=== PATIENT | female | born 1990 | race Caucasian/White ===

== ENCOUNTER → 2021-05-16 16:13 | Outpatient (BNVA) | payer OTHER, SELFPAY | PROVIDERS: PCP Nurse Practitioner Family; Referring Provider Nurse Practitioner Family; Visit Provider Surgery | DX: L02.91 Cutaneous abscess, unspecified (principal); Z72.0 Tobacco use; Z80.3 Family history of malignant neoplasm of breast; Z80.1 Family history of malignant neoplasm of trachea, bronchus and lung; Z80.8 Family history of malignant neoplasm of other organs or systems; Z79.84 Long term (current) use of oral hypoglycemic drugs; Z79.899 Other long term (current) drug therapy | CPT/HCPCS: 10061 ==

== ENCOUNTER 2021-08-27 12:22 | Emergency (ER) | payer OTHER, SELFPAY ==
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
[2021-08-27 13:00] VITALS: BP 152/72; PULSE 89; RESP 18; TEMP 37; O2SAT 99; BMI 27.3
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
[2021-08-27 14:22] LABS: UPreg QC Valid YES
[2021-08-27 14:23] LABS: Urine Pregnancy NEGATIVE (NEGATIVE)
== END 2021-08-27 15:36 | disposition home or self-care (01) ==
PROVIDERS: Emergency Provider Emergency Medicine; PCP Nurse Practitioner Family
DX: S06.0X0A Concussion without loss of consciousness, initial encounter (principal); S13.4XXA Sprain of ligaments of cervical spine, initial encounter; V43.51XA Car driver injured in collision with sport utility vehicle in traffic accident, initial encounter; F17.200 Nicotine dependence, unspecified, uncomplicated; Y93.89 Activity, other specified; Y92.414 Local residential or business street as the place of occurrence of the external cause; Y99.9 Unspecified external cause status
CPT/HCPCS: 70450; 72125; 81025; 99284

== ENCOUNTER 2023-08-28 07:54 | Outpatient (AMB) | payer OTHER, SELFPAY ==
[2023-08-28 08:11] VITALS: BP 120/68; PULSE 78; O2SAT 100; BMI 29.7
--- NOTE | 2023-08-28 08:11 | MHC.PC.OV ---
Vital Signs 08/28/23 08:11 Height 5 ft 1 in Weight 157 lb BMI 29.7 BP 120/68 Blood Pressure Location Rt brachial Position Sitting Pulse 78 Pulse Source Pulse Oximeter Pulse Oximetry (%) 100 Oxygen Delivery Method Room Air Intake Visit Reasons: Bilateral hip pain/OK Per Dr. Boyd Intake Note: Pt is here for a referral for Bilateral hip pain pt has had the pain since last year when she gave she is in PT and is needing more referrals Allergies No Known Allergies Allergy (Verified 08/28/23 08:19) Medication List - Last Reconciled 08/28/23 by GIAN Palmer No Known Home Meds Tobacco use date assessed: 08/28/23 Dental Screening Dental Screen Date: 08/28/23 Did you have a dental visit in the last 12 months?: Yes Did you have a dental problem in the last 6 months where you did not have access to dental care?: No Was dental information given to patient?: Patient has dentist HPI HPI Comments History of Present Illness Details Patient is a 32-year-old female here for a sick visit. Patient states that since giving 1 year prior she developed some pelvic floor in bilateral hip pain. She currently has services through the OBGYN at [facility]. She is currently seeing a pelvic floor physical therapist and is about to complete her session, has been suggested to have physical therapy for core and hips. Patient had pelvic CT scan with contrast at [facility] which demonstrated diastasis recti. Patient does not use any medication at this time. States that the pain is not constant, movement dependent. Denies tingling numbness. [facility] Medical History (Updated 08/28/23 @ 08:37 by GIAN Palmer) PCOS (polycystic ovarian syndrome) Skin abscess Family History Other Breast cancer Lung cancer Thyroid cancer Social History Housing: House Patient Tobacco Use Status: Current everyday Tobacco user Cigarettes Per Day: 4 e-Cigarette/Vaping Use: Never Used Second Hand Smoke Exposure: No service: No Current occupational status: employed Current occupation: [employer] Current occupational exposures/hazards: No Cognitive needs: No Hearing needs: No Vision needs: No Questionnaire Thrive Questionnaire Date Thrive assessed: 04/04/22 MATT-7 AMB Questionnaire MATT-7 Date MATT - 7 assessed: 04/04/22 Source: Developed by Drs. Hugo Roberts, Eloise Anthony, León Olson and colleagues, with an educational aidee from [employer]. Review of Systems Const Details: Constitutional : No Weight loss, No Fever, No Chills, No Fatigue, No Malaise Cardiovascular : No Chest Pain, No SOB, No Dyspnea on Exertion, No Orthopnea, No Edema, No Palpitations Respiratory : No Cough, No Sputum, No Wheezing Musculoskeletal : Admits bilateral hip pain with trunk rotation and abduction. Skin : No Skin Lesions, No rash Neuro : No Weakness, No Numbness, No Dizziness, No Headache Psych : No Anxiety/Panic, No Depression All other systems reviewed and are negative Physical exam (Primary Care) Vital Signs: Last Vital Signs Pulse 78 08/28/23 08:11 BP 120/68 08/28/23 08:11 Pulse Ox 100 08/28/23 08:11 Oxygen Delivery Method Room Air 08/28/23 08:11 BMI result Body Mass Index 29.7 Tobacco/Smoking Status: Tobacco use Status Tobacco use date assessed 08/28/23 08/28/23 08:15 Patient Tobacco Use Status Current everyday Tobacco 08/28/23 08:15 e-Cigarette/Vaping Use Never Used 08/28/23 08:15 Thrive Assessment: Date of Thrive Assessment Date Thrive assessed 04/04/22 08/28/23 08:15 Const Other: Appearance: Alert.? Oriented X3.? No acute distress.? Head: Normocephalic, atraumatic. Neck: Normal inspection.? Neck supple.? CVS: Normal heart rate and rhythm.? Pulses normal.? Respiratory: No respiratory distress.? Breath sounds normal.? Skin: Skin warm and dry.? Normal skin color.? Normal skin turgor.? Extremities: +tenderness with abduction and adduction. No obvious deformity. Neuro: Oriented X 3.? No motor deficit.? No sensory deficit. CN 2-12 intact Results Reviewed Results Reviewed: Patient CT scan from [facility] will be sent to us and uploaded. Assessment and Plan Assessment & Plan (1) Bilateral hip pain: Comment: Pelvic CT scan demonstrated diastasis recti. Patient is currently finishing course of pelvic floor therapy. Will refer to physical therapy for bilateral hip pain. Code(s): M25.551 - Pain in right hip; M25.552 - Pain in left hip Plan: Patient will also get fasting labs Plan Patient has follow-up with PCP in 2 months. Coding Level of Care Code Est Pt Level 3 (11624) Diagnoses Bilateral hip pain M25.551; M25.552 Time Spent (min) 25
== END 2023-08-28 08:28 | disposition home or self-care (01) ==
PROVIDERS: PCP Nurse Practitioner Family; Visit Provider Nurse Practitioner Primary Care
DX: M25.551 Pain in right hip (principal); M25.552 Pain in left hip
CPT/HCPCS: 99213

== ENCOUNTER 2023-08-28 08:30 | Outpatient (REF) | payer OTHER, SELFPAY ==
[2023-08-28 10:36] LABS: MANUAL DIFF FLAG NO
[2023-08-28 10:53] LABS: Appearance Urine Clear; Basophils Absolute Auto 0.1 X10*3/uL (0.0-0.2); Basophils Percent Auto 0.8 % (0-2); Color Urine Yellow; Eosinophils Absolute Auto 0.3 X10*3/uL (0.0-0.4); Glucose Urine UA Negative (Negative); Hematocrit 42.8 % (37.0-47.0); Hemoglobin 14.1 g/dl (12.0-16.0); Imm Gran Abs Auto 0.02 X10*3/uL (0.00-0.03); Imm Gran Pct Auto 0.3 % (0.0-0.4); Leukocyte Esterase Urine Negative (Negative); Lymphocytes Absolute Auto 2.3 X10*3/uL (1.2-4.9); Lymphocytes Percent Auto 30.9 % (20-40); Mean Corpuscular HGB Conc 32.9 g/dl (31.0-35.0); Mean Corpuscular Hemoglobin 29.4 pg (27.0-33.0); Mean Corpuscular Volume 89.4 fL (80.0-98.0); Mean Platelet Volume 10.5 fL (9.4-12.3); Monocytes Absolute Auto 0.6 X10*3/uL (0.1-1.2); Monocytes Percent Auto 7.8 % (2-11); Neutrophils Absolute Auto 4.1 x10*3/uL (2.0-8.3); Neutrophils Percent Auto 56.2 % (45-73); Nitrite Urine Negative (Negative); Platelet Count 318 X10*3/uL (160-400); Red Blood Count 4.79 X10*6/uL (4.20-5.50); Red Cell Distribution Width 14.1 % (11.0-16.0); Specific Gravity - Urine <= 1.005 (1.005-1.025); Urine Blood Negative (Negative); Urine Ketones Negative (Negative); Urine Protein Negative (Neg-Trace); White Blood Count 7.3 X10*3/uL (4.8-10.8)
[2023-08-28 11:08] LABS: Alanine Aminotransferase 12 U/L (0-31); Albumin Level 4.4 g/dL (3.5-5.0); Alkaline Phosphatase 65 U/L (39-117); Anion Gap 11 (12-20); Aspartate Amino Transferase 13 U/L (5-31); Bilirubin Total 0.4 mg/dL (0.0-1.0); Blood Urea Nitrogen 13 mg/dL (9-16); Calcium 9.2 mg/dL (8.4-10.2); Carbon Dioxide 22 mmol/L (22-29); Chloride 109 mmol/L (96-108); Estimated Glomerular Filt Rate > 60; Glucose Random 105 mg/dL (60-115); Sodium 138 mmol/L (135-145); Total Protein 7.4 g/dL (6.5-8.0)
[2023-08-28 11:12] LABS: TSH reflex Free T4 1.15 uIU/mL (0.32-4.0)
[2023-08-28 11:16] LABS: Vitamin B12 443 pg/mL (200-900)
[2023-09-01 16:08] LABS: Vitamin D 25-OH, D2 <4 ng/mL; Vitamin D 25-OH, D3 15 ng/mL; Vitamin D 25-OH, Total 15 ng/mL (30-100)
[2023-09-01 17:08] LABS: Vitamin B6 4.3 ng/mL (2.1-21.7)
== END 2023-08-28 08:31 | disposition home or self-care (01) ==
LOC: HO.HMGCLDS 08:30
PROVIDERS: PCP Nurse Practitioner Family; Visit Provider Nurse Practitioner Primary Care
DX: Z13.0 Encounter for screening for diseases of the blood and blood-forming organs and certain disorders involving the immune mechanism (principal); Z13.21 Encounter for screening for nutritional disorder; Z13.89 Encounter for screening for other disorder; Z91.89 Other specified personal risk factors, not elsewhere classified; Z13.29 Encounter for screening for other suspected endocrine disorder
CPT/HCPCS: 36415; 80053; 81003; 82306; 82607; 84207; 84443; 85025

== ENCOUNTER 2023-11-03 10:56 | Outpatient (AMB) | payer OTHER, SELFPAY ==
--- NOTE | 2023-11-03 10:57 | A.OFFPC_ITS ---
Vital Signs 11/03/23 11:00 Height 5 ft 1 in Weight 156 lb BMI 29.5 BP 120/76 Blood Pressure Location Rt brachial Position Sitting Pulse 70 Pulse Source Pulse Oximeter Pulse Oximetry (%) 98 Oxygen Delivery Method Room Air Intake Visit Reasons: OVERDUE PE - see comments Intake Note: Patient here for physical exam. pt would like to talk about right ear tunnel feeling and possible hernia over belly button which has been tender to the touch. last pap: 2020, recently had a baby Allergies No Known Allergies Allergy (Verified 11/03/23 11:01) Medication List - Last Reconciled 11/03/23 by TEREZA Terry cholecalciferol (vitamin D3) 50 mcg PO DAILY 90 days Tobacco use date assessed: 08/28/23 Dental Screening Dental Screen Date: 08/28/23 HPI OVERDUE PE - see comments HPI Details Pt is here for a PE. Will order labs. 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 [facility] Medical History PCOS (polycystic ovarian syndrome) Skin abscess Family History Other Breast cancer Lung cancer Thyroid cancer Social History Housing: House Patient Tobacco Use Status: Current everyday Tobacco user Cigarettes Per Day: 4 e-Cigarette/Vaping Use: Never Used Second Hand Smoke Exposure: No service: No Current occupational status: employed Current occupation: [email or web address] Current occupational exposures/hazards: No Cognitive needs: No Hearing needs: No Vision needs: No Questionnaire PHQ-9 Over the last 2 weeks, how often have you been bothered by any of the following problems? 1. Little interest or pleasure in doing things: not at all 2. Feeling down, depressed, or hopeless: not at all 3. Trouble falling or staying asleep, or sleeping too much: not at all 4. Feeling tired or having little energy: not at all 5. Poor appetite or overeating: not at all 6. Feeling bad about yourself - or that you are a failure or have let yourself or your family down: not at all 7. Trouble concentrating on things, such as reading the newspaper or watching television: not at all 8. Moving or speaking so slowly that other people could have noticed. Or the opposite - being so fidgety or restless that you have been moving around a lot more than usual: not at all 9. Thoughts that you would be better off or of hurting yourself in some way: not at all Total score: 0 Depression Screening Interpretation: Negative Depression Screening Done: Yes 82627 - PHQ-9 Billing: Yes Source: Developed by Drs. Hugo Roberts, Eloise Anthony, León Olson and colleagues, with an educational aidee from [employer]. Thrive Questionnaire Date Thrive assessed: 11/03/23 I am a: Patient What is your living situation today?: I have a steady place to live Within the past 12 months, did the food you bought not last and you didn't have the money to get more?: Never true Within the past 12 months, did you worry whether your food would run out before you got money to buy more?: Never true Do you have trouble paying for medicines?: No Do you have trouble getting transportation to medical appointments?: No Do you have trouble paying your heating and electricity bill?: No Do you have trouble taking care of your child, family member or friend?: No Do you have trouble with day-to-day activities such as bathing, preparing meals, shopping, managing finances, etc.?: No Are you currently unemployed and looking for a job?: No Are you interested in more education?: No Currently or been in a relationship where the following occur: I choose not to answer this question THRIVE Score: 0 MATT-7 AMB Questionnaire MATT-7 Date MATT - 7 assessed: 11/03/23 Feeling nervous, anxious, or on edge: 0 = Not at all Not being able to stop or control worryin = Not at all Worrying too much about different things: 0 = Not at all Trouble relaxin = Not at all Being so restless that it is hard to sit still: 0 = Not at all Becoming easily annoyed or irritable: 0 = Not at all Feeling afraid as if something awful might happen: 0 = Not at all Total AMTT-7 score (0-4 normal; 5-9 mild; 10-14 moderate; 15-21 severe): 0 Source: Developed by Drs. Hugo Roberts, Eloise Anthony, León Olson and colleagues, with an educational aidee from [employer]. MATT-7 Assessment Billing MATT-7 Assessment Tool: MATT-7 Assessment 62843 Review of Systems Const Denies chills and Denies fever(s) Eyes Denies blurry vision ENT Denies vertigo, Denies dizziness and Denies sore throat Card Denies chest pain at rest, Denies chest pain with activity, Denies diaphoresis, Denies dyspnea and Denies dyspnea on exertion Resp Denies cough, Denies dyspnea, Denies dyspnea on exertion and Denies wheezing GI Denies abdominal pain, Denies melena, Denies hematochezia, Denies constipation, Denies diarrhea and Denies loose stools Denies hematuria Musc Denies numbness and Denies tingling Skin/Breast Denies lesions Neuro Denies vertigo, Denies dizziness, Denies numbness and Denies tingling Psych Denies anxiety, Denies depression, Denies homicidal ideation, Denies suicidal ideation and Denies other (substance abuse) Aller/Immun Denies wheezing Physical exam (Primary Care) Vital Signs: Last Vital Signs Pulse 70 11/03/23 11:00 BP 120/76 11/03/23 11:00 Pulse Ox 98 11/03/23 11:00 Oxygen Delivery Method Room Air 11/03/23 11:00 BMI result Body Mass Index 29.5 Tobacco/Smoking Status: Tobacco use Status Tobacco use date assessed 08/28/23 11/03/23 11:00 Patient Tobacco Use Status Current everyday Tobacco 11/03/23 11:00 e-Cigarette/Vaping Use Never Used 11/03/23 11:00 Depression Screening Interpretation: Negative Thrive Assessment: Date of Thrive Assessment Date Thrive assessed 04/04/22 11/03/23 11:00 Currently or been in a relationship where the following occur: I choose not to answer this question Const General: cooperative Nutritional Appearance: well nourished Orientation/consciousness: patient oriented x3 HENMT Head: Yes normal to inspection, Yes normocephalic and Yes atraumatic Ears: TM's normal bilaterally Eyes General: appearance normal, both eyes and all related structures Alignment and Position: alignment normal and position normal Neck Neck: Yes normal visual inspection and Yes no lymphadenopathy Thyroid: Thyroid normal Resp Effort & Inspection: normal respiratory effort Auscultation: clear to auscultation bilaterally Cardio Rate: regular rate Rhythm: regular rhythm Heart sounds: S1 normal heart sound present, S2 normal heart sound present and no murmurs GI Palpation (GI): Soft to palpation and nontender Auscultation: normal bowel sounds Skin Rashes: no rashes Neuro General: patient oriented x3, moves all extremities, no focal motor deficits and deep tendon reflexes 2+ bilaterally Romberg Test: Negative Psych Appearance: grossly normal Mental Status: mental status grossly normal Speech and movement: Normal speech and movement present Affect: normal affect Attitude: cooperative Thought process: Normal thought process present Thought content: Normal thought content present Insight: Good insight present (Psych) Judgement: Good judgement present (Psych) Assessment and Plan Assessment & Plan (1) Physical exam: Code(s): Z00.00 - Encounter for general adult medical examination without abnormal findings Plan: Labs ordered Plan The patient agreed to the use of a medical service representative for this encounter. Scribed for TEREZA Molina by Fatou Reaves medical service representative, on 11/03/2023 at 11:15 EST. Orders: Orders Comprehensive [place]. Panel Fast Today Z00.00 - Encounter for general adult medical examination without abnormal findings Lipid Panel Today Z00.00 - Encounter for general adult medical examination without abnormal findings Coding Level of Care Code Est Pt Prev Care 18-39y(54765) Diagnoses Physical exam Z00.00 Additional Codes MATT-7 Assessment Billing - MATT-7 Assessment Tool: MATT-7 Assessment 26043 ([id number])
[2023-11-03 11:00] VITALS: BP 120/76; PULSE 70; O2SAT 98; BMI 29.5
== END 2023-11-03 11:29 | disposition home or self-care (01) ==
PROVIDERS: PCP Nurse Practitioner Family; Visit Provider Nurse Practitioner Family
DX: Z00.00 Encounter for general adult medical examination without abnormal findings (principal)
CPT/HCPCS: 99395

== ENCOUNTER 2024-04-16 08:05 | Outpatient (AMB) | payer OTHER, SELFPAY ==
--- NOTE | 2024-04-16 08:06 | MHC.OFFWIV ---
Intake Vital Signs 04/16/24 08:18 Weight 152 lb BP 110/76 Blood Pressure Location Rt brachial Position Sitting Pulse 78 Pulse Source Pulse Oximeter Temp 98.6 F Temp Source Oral Pulse Oximetry (%) 97 Oxygen Delivery Method Room Air Intake Visit Reasons: EP-migraine, nausea, cold symptoms Intake Note: Patient here for dry cough, migraine and nausea and chest pressure. She states she has been sick for about 4 weeks and has been on several antibiotics and has not been feeling any better. Patient Tobacco Use Status: Current everyday Tobacco user Allergies No Known Allergies Allergy (Verified 04/16/24 08:17) Do you need a note to return to daycare/school/sports/work: No HPI HPI Comments History of Present Illness Details Patient is a 33-year-old female complaining of 4 weeks of a lingering sinus infection. She states that 4 weeks ago, she went to [place] and the night she got home she had more migraine for a few days did go away but then she developed nausea so she tested for COVID and that was negative. Then she developed more of upper respiratory symptoms with a cough and sinus pain so 10 days ago she went to [facility] in [place] and was diagnosed with a sinus infection and borderline pneumonia. She tells me they gave her 3 days of prednisone burst and amoxicillin for 10 days and an albuterol inhaler and told her to come back if she was not feeling any better. She tells me she is not feeling any better and she feels like she has a heavy chest a productive cough with yellow sputum and some sinus pain. She feels like she is not getting a full breath when she breathes, she did have asthma as a child but has not used an inhaler in many many years. She denies any fevers or ear pain or headaches. [facility] Medical History PCOS (polycystic ovarian syndrome) Skin abscess Family History Other Breast cancer Lung cancer Thyroid cancer Social History Housing: House Patient Tobacco Use Status: Current everyday Tobacco user Cigarettes Per Day: 4 e-Cigarette/Vaping Use: Never Used Second Hand Smoke Exposure: No service: No Current occupational status: employed Current occupation: [employer] Current occupational exposures/hazards: No Cognitive needs: No Hearing needs: No Vision needs: No Review of Systems Const All systems reviewed & are unremarkable except as noted in HPI and below Physical Exam Vital Signs: Last Vital Signs Temp 98.6 F 04/16/24 08:18 Pulse 78 04/16/24 08:18 BP 110/76 04/16/24 08:18 Pulse Ox 97 04/16/24 08:18 Oxygen Delivery Method Room Air 04/16/24 08:18 Const General: cooperative, healthy appearing, comfortable and no acute distress Orientation/consciousness: patient oriented x3 Limitations: no limitations HEENT Head: Yes normal to inspection Ears: hearing grossly normal bilaterally, external ears normal and TM's normal bilaterally General nose exam: Normal external nose present, Normal nares present and No nasal discharge present Face and sinus: Yes normal facial exam and Yes sinus tenderness Mouth: Normal oral and palatal mucosa present and moist mucous membranes Throat: Yes tonsils normal, Yes uvula midline and Yes posterior oropharynx abnormal (Erythema) Eyes General: appearance normal, both eyes and all related structures Neck Neck: Yes normal visual inspection Resp Effort & Inspection: normal respiratory effort, able to speak in complete sentences, Actively coughing, no respiratory distress, not tachypneic, no tripod positioning and no use of accessory muscles Auscultation: clear to auscultation bilaterally Cardio Rate: regular rate Rhythm: regular rhythm Heart sounds: normal S1 and S2 Skin General skin exam: no rashes or lesions noted Neuro General: patient oriented x3 Extrem General: Yes normal to inspection and Yes no clubbing, cyanosis or edema Office Procedures Nebulizer Treatment Nebulizer Treatment 75702-Zsrhrfdgq/MDI RX initial, or Nebulizer Subsequent Treatment Nebulizer Treatment Nebulizer Treatment [id number]-Ovnqahjqi/MDI RX initial, or Nebulizer Subsequent Treatment Office Meds ipratropium 0.5 mg-albuterol 3 mg (2.5 mg base)/3 mL nebulization soln Performing Provider: Sarah Rivera PA-C Performing Location: [facility]-In [facility] Administered by: Sarah Rivera PA-C on 04/16/24 08:36 Dose Route Admin Location Dispensed Lot Number Expiration Date [facility] Instructor Private 3 mL inhalation 3 mL [id number] 08/27/25 21490-648-59 [employer] Assessment & Plan Assessment & Plan (1) Lower respiratory infection (e.g., bronchitis, pneumonia, pneumonitis, pulmonitis): Code(s): J22 - Unspecified acute lower respiratory infection Plan: Vital signs are stable and patient is well-appearing, as the amoxicillin did not seem to help, and it has been 4 weeks. Could be an atypical infection so I will send a Z-Harjinder for that coverage. I did order a chest x-ray but she is going to hold off on getting it done. She states if she is not feeling better after 4 or 5 days of the Z-Harjinder, she will come in and have that taken. Plan See above Orders: Orders AMB Nebulizer Treatment Today J22 - Unspecified acute lower respiratory infection XR chest 2V Today R05.9 - Cough, unspecified Medications: New azithromycin For 250 mg dose pack: take 500 mg today (day 1), then 250 mg for 4 days (days 2-5) PO 6 tabs 0RF Coding Level of Care Code Est Pt Level 4 (42761) Diagnoses Lower respiratory infection (e.g., bronchitis, pneumonia, pneumonitis, pulmonitis) J22 CPT Codes Nebulizer Treatment - Nebulizer Treatment, initial or subsequent: [id number]-Xgmtclgln/MDI RX initial, or Nebulizer Subsequent Treatment ([id number]) Nebulizer Treatment - Nebulizer Treatment, initial or subsequent: [id number]-Jyuadbkpa/MDI RX initial, or Nebulizer Subsequent Treatment ([id number])
[2024-04-16 08:18] VITALS: BP 110/76; PULSE 78; TEMP 37; O2SAT 97
== END 2024-04-16 08:49 | disposition home or self-care (01) ==
PROVIDERS: PCP Nurse Practitioner Family; Visit Provider Physician Assistant
DX: J22 Unspecified acute lower respiratory infection (principal)

== ENCOUNTER → 2024-04-16 08:05 | Outpatient (BNVA) | payer OTHER, SELFPAY | PROVIDERS: PCP Nurse Practitioner Family; Visit Provider Physician Assistant | DX: J22 Unspecified acute lower respiratory infection (principal) | CPT/HCPCS: 94640 ==

== ENCOUNTER 2024-06-10 08:03 | Outpatient (AMB) | payer OTHER, SELFPAY ==
--- OUTSIDE RECORDS SUMMARY | 2024-06-10 08:05 | XMS_ITS | Continuity of Care Document ---
Author Organization [facility] As [address] [place] [address]- Care Team Providers Care Flue Tile Press Operator Name Role Phone Dusty Thomas NP Primary Care Physician [phone] [facility]counter [facility] Date(s): 04/28/24 - 05/28/[address] [place], [place] [address] Encounter Type: Triage Allergies, Adverse Reactions, Alerts No Known Allergies Immunizations Given and Recorded Vaccine Date Status Refusal Reason tetanus/diphtheria/pertussis, acel(Tdap) 10/07/22 Given tetanus/diphtheria/pertussis, acel(Tdap) 1 07/13/19 Given 1Result Comment: Patient tolerated well NS Problem List Condition Confirmation Course Effective Dates Status Health St atus Informant Anemia Confirmed Active Asthma Confirmed Active Back pain Confirmed Active History of vacuum extraction assisted delivery Confirmed Active Hemorrhoids in Confirmed Active Marijuana user Confirmed Active Chronic hypertension in Confirmed Active Social History Social History Type Response Smoking Status Former smoker, quit more than 30 days ago; Tobacco user in household: No;Never entered on: 03/18/19 Sex Sex Representation Female (finding) Patient Care team information Care Team Personnel Name: Dusty Thomas NP Position: Reference Physician Member Role: PCP Address: [address] [place] [address]- [place] Tele[employer]: Name: Ryan Patel MD Position: S WELDING MACHINE OPERATOR G[employer] ARC MD Member Role: Lifetime WELDING MACHINE OPERATOR [employer] ARC Physician Address: [address] [place] [address] [facility] WELDING MACHINE [place] [address]- [place] Tele[employer]: Care Team Related Persons Name: CHEIKH MAXWELL Name: PEE MAXWELL Name: CAROLYNE MARTINEZ Name: IKER MARTINEZ Insurance Providers Guarantor name: BERKLEY MARTINEZ Health Plan Information #: 1 Payer: HNE FF NON BHP HMO Member Number: NA Policy Number: NA Group Number: NA Health Plan Information #: 2 Payer: HNE HMO [facility] HP Member Number: NA Policy Number: NA Group Number: NA
--- OUTSIDE RECORDS SUMMARY | 2024-06-10 08:05 | XMS_ITS | Patient Health Record ---
Author Organization [facility] Address [address] [facility] [place] [address] Care Team Providers Care Medical Practice Assistant Name Role Phone Dusty Woods Primary Care Provider Unav ailable Shaheen Horner Unavailable [phone] Allergies No Known Allergies Reason For Referral No Information Medications Medication SIG (Take, Route, Fr equency, Duration) Notes Start Date End Date Status metFORMIN HCl Active Work Note-Appointment . . . Pt had a [facility] appointment today for . 01/08/2021 Active Ciclopirox 0.77 % 1 application to aff ected area Externally Twice a day for 365 days Active Social History Tobacco Use: Social History Observation Description Date Details (start date - stop date) Current Smoker 06/30/2003 - NA Tobacco Use/Smoking Question Answer Notes Are you a: current smoker When did you start smoking? 06/30/2003 Alcohol Screen Question Answer Notes Did you have a drink contain ing alcohol in the past year? Yes How often did you have a dri nk containing alcohol in the past year? Monthly or less (1 point) Points 1 Interpretation Negative Tobacco use other than smoking: Question Answer Notes Are you an other tobacco user? No Problems Problem Type SNOMED Code ICD Code Onset Dates Problem Status W/U Status Risk Notes Problem Tinea unguium (358522193) Tinea unguium (B35.1) Active confirmed Plan Of Treatment No Information Insurance Providers Payer Name Payer Address Payer Phone Subscriber Number Group Number Insured Name Patient Relationship to Insured Coverage Start Date Coverage End Date [facility] [address] [facility] [place] [id number] Misti Simms Self - patient is the insured Medical (General) History Surgical History Surgery Date(Month/Year)
--- OUTSIDE RECORDS SUMMARY | 2024-06-10 08:05 | XMS_ITS | Continuity of Care Document ---
Author Organization [address] [place] [address]- Care Team Providers Care Wire Temperer Name Role Phone Martha CARROLL, Dusty Palmer Primary Care Physician Encounter [facility] Date(s): 05/12/24 - 05/19/[address] [place] [address]- Encounter Diagnosis Hemorrhoids(Discharge Diagnosis) - 05/12/24 Attending Physician: Shell Boothe NP Encounter Type: Office Visit Allergies, Adverse Reactions, Alerts No Known Allergies [...] Confirmed Active Chronic hypertension in Confirmed Active Diagnosis Diagnosis Type Effective Dates Health Status Clini lily Service Informant Hemorrhoids Discharge Diagnosis 05/12/24 Social History Social History Type Response Smoking Status Former smoker, quit more than 30 days ago; Tobacco user in household: No;Never entered on: 03/18/19 Sex Sex Representation Female (finding) Patient Care team information Care Team Personnel Name: Martha CARROLL , Dusty Palmer Position: Reference Physician Member Role: PCP Address: [address] [place], [place] [address] Telecom: Name: Ryan Patel MD Position: S NATIONAL SERVICE OFFICER MD Member Role: Lifetime NATIONAL SERVICE OFFICER Physician Address: [address] [place] [address]'s Health [place] [address]- Telecom: Care Team Related Persons Name: CHEIKH MAXWELL Name: PEE MAXWELL Name: CAROLYNE MARTINEZ Name: IKER MARTINEZ Insurance Providers Guarantor name: BERKLEY MARTINEZ Health Plan Information #: 2 Payer: HNE HMO [facility] Member Number: [id number] Policy Number: NA Group Number: [id number] Health Plan Information #: 1 Payer: HNE FF NON BHP HMO Member Number: [id number] Policy Number: NA Group Number: [id number]
[2024-06-10 08:22] VITALS: BP 112/68; PULSE 78; O2SAT 98
--- NOTE | 2024-06-10 08:22 | MHC.OFFWIV ---
Intake Vital Signs 06/10/24 08:22 Weight 141 lb BP 112/68 Blood Pressure Location Rt brachial Position Sitting Pulse 78 Pulse Source Pulse Oximeter Pulse Oximetry (%) 98 Oxygen Delivery Method Room Air Intake Visit Reasons: EP ?LT toe fracture Intake Note: Patient here left great toe pain that happened end of april when she took her child to ice rink and another child stepped on her toe with the skates on and a few weeks later she noticed she had discomfort with bending. Patient Tobacco Use Status: Current everyday Tobacco user Allergies No Known Allergies Allergy (Verified 06/10/24 08:24) Do you need a note to return to daycare/school/sports/work: Yes HPI HPI Comments History of Present Illness Details History of Present Illness The patient is a 33-year-old female presenting with possible toe fracture and foot swelling after an injury. The patient reports that the injury to the left big toe occurred approximately four weeks ago when a child stepped on her foot with ice skates.She called and spoke with the nurse at her PCP office, they had initially suggested an x-ray, but advised the patient to visit for further evaluation due to persistent symptoms. The patient describes a sensation of cracking when bending the toe and swelling in the entire foot that has increased recently. There is pain upon pressure at the joint of the left big toe. The patient mentions the foot initially bruised and symptoms seemed to improve until recent exacerbation. Mobility of the ankle and all other toes is maintained, and the patient is able to move the affected toe independently. No other prior treatments for this issue have been received. The patient is concerned about walking, especially due to an upcoming trip to [place] this Friday, in 2 days. Physical Exam General: Cooperative, healthy appearing, comfortable, no acute distress and well developed Orientation: Patient oriented x3 Limitations: No limitations Head: Normal to inspection Ears: Hearing grossly normal bilaterally Nose: Normal external nose present Face and sinus: Normal facial exam Eyes: Appearance normal, both eyes and all related structures Neck: Normal visual inspection and Yes full ROM Respiratory: Normal respiratory effort and able to speak in complete sentences. Clear to auscultation bilaterally Cardiovascular: Regular rate and rhythm. Normal S1 and S2 Skin: No rashes or lesions noted Neuro: Patient oriented x3 Extremities: Swelling noted on the left great toe, full ROM but with pain, NVI. Ankle and other toes are normal to inspection. [facility] Medical History PCOS (polycystic ovarian syndrome) Skin abscess Family History Other Breast cancer Lung cancer Thyroid cancer Social History Housing: House Patient Tobacco Use Status: Current everyday Tobacco user Cigarettes Per Day: 4 e-Cigarette/Vaping Use: Never Used Second Hand Smoke Exposure: No service: No Current occupational status: employed Current occupation: [employer] Current occupational exposures/hazards: No Cognitive needs: No Hearing needs: No Vision needs: No Review of Systems Const All systems reviewed & are unremarkable except as noted in HPI and below Physical Exam Vital Signs: Last Vital Signs Pulse 78 06/10/24 08:22 BP 112/68 06/10/24 08:22 Pulse Ox 98 06/10/24 08:22 Oxygen Delivery Method Room Air 06/10/24 08:22 Assessment & Plan Assessment & Plan (1) Toe pain, left: Code(s): M79.675 - Pain in left toe(s) Plan: see below (2) Sprain of left great toe: Code(s): S93.502A - Unspecified sprain of left great toe, initial encounter Qualifiers: Encounter type: initial encounter Qualified Code(s): S93.502A - Unspecified sprain of left great toe, initial encounter Plan: Plan - Obtain x-ray imaging of the left foot to evaluate for fracture or other injury. My inspection of the xr shows no fx or dislocation, gave pt a boot with instructions to use over the next week or 2 and wean herself off. Can take Aleve as needed. Can brittney tape for rest when in [place]. - Discussed rest period to permit healing and reducing weight-bearing on the affected foot. Patient was informed and verbally consented to the use of an ambient scribe for clinic note documentation during this visit. Orders: Orders XR toe LT min 2V Today M79.675 - Pain in left toe(s) Coding Level of Care Code Est Pt Level 4 (97555) Diagnoses Toe pain, left M79.675 Sprain of left great toe, initial encounter S93.502A Encounter type: initial encounter
== END 2024-06-10 09:05 | disposition home or self-care (01) ==
PROVIDERS: PCP Nurse Practitioner Family; Visit Provider Physician Assistant
DX: M79.675 Pain in left toe(s) (principal); S93.502A Unspecified sprain of left great toe, initial encounter

== ENCOUNTER 2024-06-10 08:03 | Outpatient (REF) | payer OTHER, SELFPAY ==
--- NOTE | ~2024-06-10 | XR_ITS ---
EXAMINATION: XR TOES, LEFT CLINICAL INFORMATION: M79.675 - Pain in left toe(s) COMPARISON: None TECHNIQUE: 3 views of the left great toe were performed including single AP view of the foot FINDINGS: There are no fractures or dislocations. No joint effusion is identified. No bone, joint or soft tissue abnormality is demonstrated. XR/XR toe LT min 2V IMPRESSION: Unremarkable examination. Electronically signed by: Kamron Batres MD 06/10/2024 12:44 PM DARLINE
== END 2024-06-10 08:04 | disposition home or self-care (01) ==
LOC: HO.HMGCX 08:03
PROVIDERS: PCP Nurse Practitioner Family; Visit Provider Physician Assistant
DX: M79.675 Pain in left toe(s) (principal)
CPT/HCPCS: 73660

== ENCOUNTER 2024-11-24 14:09 | Outpatient (AMB) | payer OTHER, SELFPAY ==
[2024-11-24 14:12] VITALS: BP 112/70; PULSE 66; O2SAT 100; BMI 26.4
--- NOTE | 2024-11-24 14:12 | A.OFFPC_ITS ---
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: No Accompanied by: Self / Same As Patient Allergies No Known Allergies Allergy (Verified 11/24/24 14:13) Medication List - Last Reconciled 11/24/24 by EDWARD TerryPJunior cholecalciferol (vitamin D3) 50 mcg PO DAILY 90 days Tobacco use date assessed: 11/24/24 Dental Screening Dental Screen Date: 11/24/24 Did you have a dental visit in the last 12 months?: Yes Did you have a dental problem in the last 6 months where you did not have access to dental care?: No Was dental information given to patient?: Patient has dentist HPI PE HPI Details History of Present Illness The patient is a 34-year-old female presenting with pain in her left big toe. The issue began in April after an incident where a child wearing ice skates stepped on her toe, which was protected only by thin shoes. She felt a pop and experienced immediate significant pain. An X-ray and MRI conducted by a specialist did not reveal any abnormalities, and the treatment offered was a cortisone injection. The patient is reluctant to flex or extend her toe due to the risk of pain and swelling, which can last for up to three days. She reports a non-tender bump on the dorsal aspect of the toe that becomes tender with movement. She denies any chest pain, shortness of breath, abdominal pain, blood in stool, constipation, or diarrhea, and also denies any suicidal or homicidal ideation. Overall, she is managing well with her work responsibilities. Health Maintenance - Pap smears maintained with a gynecolog ist Social History - Employment: Patient reports being busy with work Review of Systems - Musculoskeletal: Reports pain and swel ling in left big toe; denies other joint pain - Cardiovascular: Denies chest pain - Respiratory: Denies shortness of breat h - Gastrointestinal: Denies abdominal yahir n, blood in stool, constipation, diarrhea - Psychiatric: Denies suicidal ideation, homicidal ideation Physical Exam General: Cooperative, healthy appearing, comfortable, no acute distress and well developed Orientation: Patient oriented x3 Limitations: Afraid to flex or extend her left big toe due to pain and swelling Head: Normal to inspection Ears: Hearing grossly normal bilaterally Nose: Normal external nose present Face and sinus: Normal facial exam Eyes: Appearance normal, both eyes and all related structures Neck: Normal visual inspection and Yes full ROM Respiratory: Normal respiratory effort and able to speak in complete sentences. Clear to auscultation bilaterally Cardiovascular: Regular rate and rhythm. Normal S1 and S2 GI: Normal to inspection. Soft to palpation and nontender Skin: No rashes or lesions noted Neuro: Patient oriented x3 Extremities: Palpable bump on the dorsal aspect of the left big toe, dorsal distal aspect just proximal to the toenail. Bump is not tender to touch but tender with movement. Results Plan The patient will be referred to a local food editor for further evaluation of her left big toe pain. The bump on the toe will be assessed to determine if intervention is necessary. Continued avoidance of excessive toe movement is recommended to prevent symptom exacerbation. Routine lab work will be conducted in the near future to monitor her overall health status. Discussion Notes I discussed with the patient the current status of her left big toe pain and the need for a second opinion from a food editor. We reviewed the previous imaging results and the lack of significant findings, as well as the specialist?s recommendation for a cortisone injection. I explained the importance of a thorough evaluation by a food editor to determine the appropriate management plan for her condition. We also discussed the importance of avoiding movements that exacerbate her symptoms. I emphasized the need for routine lab work to maintain general health. The patient understood and agreed with the plan. Patient Instructions - Follow up with a food editor for furthe r evaluation of the left big toe. - Avoid excessive movement of the left b ig toe to prevent pain and swelling. - Routine lab work to be conducted soon to monitor overall health. - Report any new symptoms or concerns pr omptly. [facility] Medical History Osteoarthritis of left ankle and foot PCOS (polycystic ovarian syndrome) Skin abscess Surgical History No pertinent past surgical history Family History Other Breast cancer Lung cancer Thyroid cancer Social History Housing: House Patient Tobacco Use Status: Current everyday Tobacco user Cigarettes Per Day: 4 e-Cigarette/Vaping Use: Never Used Second Hand Smoke Exposure: No service: No Current occupational status: employed Current occupation: [employer] Current occupational exposures/hazards: No Cognitive needs: No Hearing needs: No Vision needs: No Questionnaire PHQ-9 Over the last 2 weeks, how often have you been bothered by any of the following problems? 1. Little interest or pleasure in doing things: not at all 2. Feeling down, depressed, or hopeless: not at all 3. Trouble falling or staying asleep, or sleeping too much: not at all 4. Feeling tired or having little energy: not at all 5. Poor appetite or overeating: not at all 6. Feeling bad about yourself - or that you are a failure or have let yourself or your family down: not at all 7. Trouble concentrating on things, such as reading the newspaper or watching television: not at all 8. Moving or speaking so slowly that other people could have noticed. Or the opposite - being so fidgety or restless that you have been moving around a lot more than usual: not at all 9. Thoughts that you would be better off or of hurting yourself in some way: not at all Total score: 0 Depression Screening Interpretation: Negative Depression Screening Done: Yes 10111 - PHQ-9 Billing: Yes Source: Developed by Drs. Hugo Roberts, Eloise Anthony, León Olson and colleagues, with an educational aidee from [employer]. Thrive Questionnaire Date Thrive assessed: 11/24/24 I am a: Patient What is your living situation today?: I have a steady place to live Within the past 12 months, did the food you bought not last and you didn't have the money to get more?: Never true Within the past 12 months, did you worry whether your food would run out before you got money to buy more?: Never true Do you have trouble paying for medicines?: No Do you have trouble getting transportation to medical appointments?: No Do you have trouble paying your heating and electricity bill?: No Do you have trouble taking care of your child, family member or friend?: No Do you have trouble with day-to-day activities such as bathing, preparing meals, shopping, managing finances, etc.?: No Are you currently unemployed and looking for a job?: No Are you interested in more education?: No Please select the resources that you would like help with: None Currently or been in a relationship where the following occur: No concerns reported THRIVE Score: 0 AUDIT C Alcohol Use Questionnaire (AUDIT-C) 1. How often do you have a drink containing alcohol?: Monthly or less 2. How many drinks containing alcohol do you have on a typical day when you are drinking?: 1 or 2 3. How often do you have six or more drinks on one occasion?: Never Total Score: 1 Score Reviewed/Action Taken: Yes MATT-7 AMB Questionnaire MATT-7 Date MATT - 7 assessed: 11/24/24 Feeling nervous, anxious, or on edge: 0 = Not at all Not being able to stop or control worryin = Not at all Worrying too much about different things: 0 = Not at all Trouble relaxin = Not at all Being so restless that it is hard to sit still: 0 = Not at all Becoming easily annoyed or irritable: 0 = Not at all Feeling afraid as if something awful might happen: 0 = Not at all Total MATT-7 score (0-4 normal; 5-9 mild; 10-14 moderate; 15-21 severe): 0 Source: Developed by Drs. Hugo Roberts, Eloise Anthony, León Olson and colleagues, with an educational aidee from [employer]. MATT-7 Assessment Billing MATT-7 Assessment Tool: MATT-7 Assessment 53835 Physical exam (Primary Care) Vital Signs: Last Vital Signs Pulse 66 11/24/24 14:12 BP 112/70 11/24/24 14:12 Pulse Ox 100 11/24/24 14:12 Oxygen Delivery Method Room Air 11/24/24 14:12 BMI result Body Mass Index 26.4 Tobacco/Smoking Status: Tobacco use Status Tobacco use date assessed 11/24/24 11/24/24 14:13 Patient Tobacco Use Status Current everyday Tobacco 11/24/24 14:13 e-Cigarette/Vaping Use Never Used 11/24/24 14:13 PHQ-9: PHQ-9 Score PHQ-9: Total score 0 11/24/24 14:13 Depression Screening Interpretation: Negative Thrive Assessment: Date of Thrive Assessment Date Thrive assessed 11/24/24 11/24/24 14:13 Currently or been in a relationship where the following occur: No concerns reported Coding Level of Care Code Est Pt Prev Care 18-39y(24665) Diagnoses Physical exam Z00.00 Toe pain, left M79.675 Additional Codes MATT-7 Assessment Billing - MATT-7 Assessment Tool: MATT-7 Assessment 31816 ([id number]) PHQ-9 - 16151 - PHQ-9 Billing: Yes ([id number]) Assessment & Plan Assessment & Plan (1) Physical exam: Code(s): Z00.00 - Encounter for general adult medical examination without abnormal findings Category: Medical (2) Toe pain, left: Code(s): M79.675 - Pain in left toe(s) Category: Medical Plan . Orders: Orders Complete Blood Count Auto Diff Today Z00.00 - Encounter for general adult medical examination without abnormal findings Comprehensive [place]. Panel Fast Today Z00.00 - Encounter for general adult medical examination without abnormal findings TSH reflex Free T4 Today Z00.00 - Encounter for general adult medical examination without abnormal findings UA CC w/rflx Micro + Cult Today Z00.00 - Encounter for general adult medical examination without abnormal findings Lipid Panel Today Z00.00 - Encounter for general adult medical examination without abnormal findings Referrals Podiatry Referral M79.675 - Pain in left toe(s)
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
== END 2024-11-24 14:58 | disposition home or self-care (01) ==
LOC: HO.HMCC 14:10
PROVIDERS: PCP Nurse Practitioner Family; Visit Provider Nurse Practitioner Family
DX: Z00.00 Encounter for general adult medical examination without abnormal findings (principal); M79.675 Pain in left toe(s)

== ENCOUNTER → 2024-11-24 14:09 | Outpatient (BNVA) | payer OTHER, SELFPAY | PROVIDERS: PCP Nurse Practitioner Family; Visit Provider Nurse Practitioner Family | DX: Z00.00 Encounter for general adult medical examination without abnormal findings (principal); M79.675 Pain in left toe(s) | CPT/HCPCS: 96127 ==